=== PATIENT | male | born 1935 | race Caucasian/White ===

== ENCOUNTER → 2017-02-02 | Outpatient (CLI) | payer OTHER ==
[~2017-02-02] MED LIST: APIX2.5T PO; LEVO25TA2 PO; LISI2.5T PO; LISI5TAB7 PO; METO25TA35 PO; OMEP-110 PO; REGADENOSON 0.4 MG/5 ML SYRINGE ONE; SIMV5TAB5 PO
== END | disposition home or self-care (01) ==
LOC: CFH 06:37
PROVIDERS: ATTEND Internal Medicine Cardiovascular Disease
DX: I21.09 ST elevation (STEMI) myocardial infarction involving other coronary artery of anterior wall (principal); I10 Essential (primary) hypertension
CPT/HCPCS: 78452; 93017; 93306; A9502; J2785